=== PATIENT | female | born 1965 | race Caucasian/White ===

== ENCOUNTER 2024-04-03 12:44 | Outpatient (CLI) | payer OTHER, SELFPAY ==
--- NOTE | 2024-04-03 13:04 | ECG_ITS ---
SEE SCANNED COPY FOR CONFIRMED REPORT MTDD
[2024-04-03 13:20] LABS: Hematocrit 47.9 % (37.0-47.0)
== END 2024-04-03 12:45 | disposition home or self-care (01) ==
LOC: ANHSURGERY 12:48
PROVIDERS: Anesthesiology; PCP Family Medicine; Visit Provider Surgery Plastic and Reconstructive Surgery
DX: Z01.818 Encounter for other preprocedural examination (principal); Z41.1 Encounter for cosmetic surgery
CPT/HCPCS: 36415; 85014; 85018; 93005

== ENCOUNTER 2024-04-07 00:49 | Day surgery (SDC) | payer OTHER, SELFPAY ==
[2024-04-01 15:18] VITALS: BMI 28.3
--- NOTE | 2024-04-01 15:25 | PC.NURSE ---
Report to the Outpatient Waiting Room, entrance under the green pavilion located off [facility], at time _0630_ on date _[id number]_. Planned Procedure Time: _0830_. Time changes happen often and if your time is changed the preop area will call you the afternoon before. - You and your visitor will be asked to self-screen and do not enter if you have any COVID symptoms. - A mask is optional within the hospital at this time. Patients may have clear liquids (water, carbonated beverages, clear teas, apple juice) until 3 hours prior to surgery with a maximum of 20 ounces. - No food from midnight until time of surgery Take the following medications with a SIP of water the morning of surgery: Progesterone DO NOT STOP ANY OF YOUR OTHER PRESCRIPTION MEDICATIONS PRIOR TO SURGERY ?EXCEPT THE FOLLOWING Medications to discontinue per physician Vitamins and probiotic Date to take last [id number] Please no make-up, nail barbadian, hairspray, perfume, deodorant, or body powder the day of surgery. No jewelry (including any body piercings) or valuables the day of surgery, leave them at home. Please take a shower or bath the night before, or the morning of, surgery with an antibacterial soap. Wear comfortable, loose fitting clothing. - Jewelry must be removed prior to entering the operating room. Rings and piercings that are not removed may be cut off. - The hospital will not accept responsibility for valuables. - Please leave all valuables, including medications, at home the day of surgery. If you are going home after surgery, a licensed telephone directory distributor driver must drive you home. - NO public transportation without another adult if you receive anesthesia. - We recommend that an adult stay with you for 24 hours following discharge. - We also recommend that you do not drive, make important decision, drink alcoholic beverages, or take any drugs that were not prescribed by your health care provider for at least 24 hours after your discharge time. Follow any additional instructions given to you from your surgeon. If you or anyone in your household have experienced Covid symptoms in the past week, please notify your surgeon or the nurse liaison at the phone number below for possible testing. Telephone instructions given to __Lucy Momin___and asked if any additional questions and then verbalized understanding. Patient advised to call surgeon office or pre surgery nurse liaison [phone] if any additional questions.
[2024-04-07] VITALS (9 sets, daily range): BP systolic 102–128; BP diastolic 60–73; PULSE 74–110; RESP 12–20; TEMP 36.3–36.9; O2SAT 93–100
--- NOTE | 2024-04-07 07:17 | WPDHPUPDATE1 ---
History and Physical Update Update Date/Time: 04/07/24 07:17 History and Physical has been reviewed, including an updated exam of the patient. There are NO changes in the patient's condition. Risks, benefits, and alternatives have been discussed and questions answered. Patient agrees to proceed with procedure.
--- NOTE | 2024-04-07 07:17 | W.PM.PROC2 ---
Procedure Note - Detailed Date of Procedure 04/07/24 Pre-op Diagnosis skin laxity, breast ptosis Post-op Diagnosis Same Procedure Performed 1. Bilateral mastopexy with Galaflex 2. Belt lipectomy with suction lipectomy Surgeon Andrew Rivera MD Anesthesia General Findings Inverted T Superior medial pedicle Galaflex REF# [id number] Tissue removed: 1,874 grams Lipoaspirate: 2,200 cc Diastasis 7cm Description of Procedure They are here today for the above procedures. Previously and again today the risks, benefits, alternatives were discussed in extensive detail. I wanted them to be very realistic about the risks involved as well as expectations. We discussed aftercare and what to monitor for. I was very upfront about the risks of wound breakdown leading to loss of skin, open wounds, and need for additional procedures with permanent abdominal deformity. We discussed DVT/PE risks and management. Made sure answered all of their questions to their satisfaction today and consent was obtained. They were marked in the preoperative holding area with their verification. The patient was taken to the operating room. Anesthesia was provided by anesthesiology. A Vallejo catheter was started. Placed prone on the operating room table with care taken to protect from injury. Prepped and draped in a standard sterile fashion. A surgical time-out was taken. Stab incisions were made and tumescent solution was infiltrated. Once adequate time was allowed for hemostasis a 5mm basket and 3mm multi hole cannula were utilized to complete suction lipectomy based on S.A.F.E. technique in multiple planes and passes. Suction lipectomy continued to result based on pre-operative planning, intra-operative observation, and rolling pinch test which were in full agreement. A 10 blade was used to make the upper incision and dissection was continued inferior elevating what we necessary for closure. I placed patient in slight jackknife position and excised intervening tissue. This was closed with 3 point suture with 2-0 Vicryl followed 2-0 PDO strattafix, 3-0 stratafix ,running subcuticular 4-0 Monocryl, and tissue glue. Laterally rissa were placed for turning. Patient was then placed supine with care taken to protect from injury. Breast Eleven blade was utilized to make a stab incision and infiltrated with low volume tumescent solution. The breast was tailor tacked into place. I tailor tacked the breast into position. Placed her in a sitting position. Verified the nipple-areolar location based on preoperative planning as well as intraoperative observations and measurements in full agreement. She was placed supine. I de-epithelialized the pedicle. I then de-epithelialized the inferior breast tissue to create an autoaugmentation flap based on intercostal content curator. I elevated medial and lateral tissue flaps as well for planned closure. The autoaugmentation flap was sutured to the chest wall with 2-0 PDS. Galaflex was soaking on the back table in a betadine solution. Trimmed and sutured into place with 2-0 Vicryl. I closed along the IMF with 2-0 Stratafix. Along the vertical with 2-0 PDS. I closed around the Ludin with 3-0 strata fix. 3-0 Monocryl along the vertical. 3-0 Stratafix along the IMF. I finally closed everything with running subcuticular 4-0 Monocryl and tissue glue. Abdomen I placed the patient in a flexed position to verify the upper and lower markings would reach. I then placed supine. A thorough abdominal examination was completed. Stab incisions were made and tumescent solution infiltrated. Stab incisions were made and tumescent solution was infiltrated. Once adequate time was allowed for hemostasis a 5mm basket and 3mm multi hole cannula were utilized to complete suction lipectomy based on S.A.F.E. technique in multiple planes and passes. Suction lipectomy continued to result based on pre-operative planning,
[2024-04-07 07:20] LABS: Urine Cotinine NEGATIVE
[2024-04-07] MEDS: TRANEXAMIC ACID 1,000MG/ISO100 1,000 MG/100 ML BAG 200 MG IVPB (07:45)
[2024-04-07] MEDS: LACTATED RINGERS 1,000 ML 30 ML IV CONT ×2 (07:45→15:23)
--- NOTE | 2024-04-07 08:00 | WPDANESEPPF ---
Anes - Initial Pre Proc Eval Procedure: Operation Date: 04/07/24 08:30 Proposed Procedures p Belt Lipectomy with Liposuction - Andrew Rivera MD s Bilateral Breast Mastopexy with Galaflex - Andrew Rivera MD Date/Time: 04/07/24 08:00 Surgeon: Andrew Rivera MD Pre Op Diagnosis: skin laxity, breast ptosis Patient Data Age: 58 Gender: F Height: 1.5 m Weight: 64.9 kg Last Vital Signs Temp 97.3 F L 04/07/24 07:45 Pulse 74 04/07/24 07:45 Resp 14 04/07/24 07:45 BP 128/65 04/07/24 07:45 Pulse Ox 100 04/07/24 07:45 O2 Del Method Room Air 04/07/24 07:45 Allergies Allergy/AdvReac Type Severity Reaction Status Date / Time No Known Allergies Allergy Verified 04/07/24 07:53 Home Medications Medication Instructions Recorded Confirmed Type loratadine 10 mg tablet (Claritin) 10 mg PO DAILY 09/29/19 04/01/24 History Lactobacillus 40-Bifidobact 1 cap PO DAILY 04/01/24 04/01/24 History 3-S.thermophilus 100 billion cell capsule (Probiotic) ascorbic acid (vitamin C) 1,000 mg 1 g PO DAILY 04/01/24 04/01/24 History tablet (Vitamin C) cholecalciferol (vit D3) 1,000 1 tablet PO DAILY 04/01/24 04/01/24 History unit-vitamin K2 (MK4) 100 mcg tablet progesterone micronized 100 mg 100 mg PO DAILY 04/01/24 04/01/24 History capsule Laboratory Tests 04/07/24 06:50 Cotinine Negative Patient hx anesthesia problems: none Family hx anesthesia problems: none Results Review: All pre-operative results and documents have been reviewed as part of the pre-operative evaluation. [facility] Surgical History Surgical History (Updated 09/29/19 @ 11:20 by Andrew Rivera MD) H/O total hysterectomy History of appendectomy History of dilatation and curettage Social History Social History Smoking status: Never smoker Living arrangements: with family Spiritual care concerns: No Anes - Eval Final PreProcedure Day of Procedure 04/07/24 08:00 Patient weight: overweight Heart: regular rate and rhythm Lungs: clear to auscultation Airway: Mallampati scale class II Neurological: alert and oriented Last oral intake: >/= 8 hours ASA classification: II Emergent: no Anesthetic plan: proceed Anesthesia type and monitoring: general ETT and standard monitoring Results Review: All pre-operative results and documents have been reviewed as part of the pre-operative evaluation. Informed Consent: The patient's anesthetic plan and its attendant risks and benefits were discussed with the patient/family/POA. Questions were solicited and answers provided to the satisfaction of the patient/family/POA.
[2024-04-07] MEDS: ceFAZolin 2 GM/D5W 50 ML 2 GM/50 ML BAG IVPB (08:21)
[2024-04-07] MEDS: LACTATED RINGERS IRRIG 1,000 ML, LIDOCAINE HCL 1% LOCAL INJ 50 ML, EPINEPHrine HCL INJ ... INFILTRATE (08:21)
[2024-04-07] MEDS: NACL 0.9% IRRIG POUR BOTTLE 900 ML, GENTAMICIN SULFATE INJ 160 MG, ceFAZolin 2 GM, POVI... IRRIGATION (08:21)
[2024-04-07] MEDS: BUPIVACAINE/EPINEPHRINE 0.5% 10 ML VIAL 60 ML INFILTRATE (08:21)
--- NOTE | 2024-04-07 10:41 | SUR.OPER ---
moved from prone position to supine position at approx. 1035
[2024-04-07] MEDS: ceFAZolin SODIUM 1 GM VIAL IV PUSH (12:25)
== END 2024-04-07 17:36 | disposition home or self-care (01) ==
PROVIDERS: PCP Family Medicine; Visit Provider Surgery Plastic and Reconstructive Surgery
PROC: (CPT 15830; principal; 2024-04-07 08:30)
PROC: (CPT 19316; 2024-04-07 08:30)
DX: Z41.1 Encounter for cosmetic surgery (principal); L57.4 Cutis laxa senilis; N64.81 Ptosis of breast; Z98.890 Other specified postprocedural states
CPT/HCPCS: 19316; 15777 ×2; 15877; 15830; 15847; 80307; J0171; J0330; J0690; J1100; J1170; J1580; J2250; J2371; J2405; J2704; J3010; J7120